=== PATIENT | male | born 1980 | race Asian ===

== ENCOUNTER 2021-03-26 18:51 | Inpatient (IN) | payer BC ==
[~2021-03-26] VITALS: Ht 177.8 cm; Wt 108.4 kg
[2021-03-26] MEDS ORDERED: MORPHINE SULFATE 4 MG/ML CPJ (NOT FOR IM USE) IV STA (21:16)
[2021-03-26] MEDS ORDERED: ONDANSETRON HCL 4MG/2ML INJ IV STA (21:16)
[2021-03-26] MEDS ORDERED: SODIUM CHLORIDE 0.9% 1,000 ML IV ONE ×2 (21:30)
[2021-03-27 00:11] LABS: HEMATOCRIT. 45.5 % (42.0-52.0); HEMOGLOBIN. 14.9 g/dL (14.0-18.0); MEAN CORPUSCULAR HEMOGLOBIN 23.7 pg (28.0-32.0); MEAN CORPUSCULAR VOLUME 72.4 fL (80.0-94.0); MEAN PLATELET VOLUME 8.4 fl (7.4-10.4); PLATELET 282 x1000/uL (130-400); RED BLOOD CELL COUNT 6.28 mill/uL (4.7-6.1)
[2021-03-27 00:22] LABS: CHLORIDE 112 mEq/L (98-107)
[2021-03-27 00:26] LABS: ETHANOL BLOOD < 10 mg/dL
[2021-03-27 00:31] LABS: INR 1.1; PROTHROMBIN TIME 11.4 sec (9.6-11.0)
[2021-03-27] MEDS ORDERED: DEXT 5%/0.9% NACL 1,000 ML IV ONE (00:45)
[2021-03-27] MEDS ORDERED: CALCIUM GLUCONATE 100MG/ML 10ML VIAL IV ONE (00:45)
[2021-03-27 02:22] LABS: CLARITY URINE CLOUDY (CLEAR); COLOR URINE DARK YELLOW (YELLOW); KETONES URINE TRACE (NEGATIVE); LEUKOCYTE ESTERASE URINE TRACE (NEGATIVE); NITRITE URINE NEGATIVE (NEGATIVE); OCCULT BLOOD URINE NEGATIVE (NEGATIVE); PROTEIN URINE 1+ (NEGATIVE); SPECIFIC GRAVITY URINE 1.021 (1.005-1.030)
[2021-03-27 02:31] LABS: METHADONE URINE SCREEN NEGATIVE (NEGATIVE); OPIATES URINE SCREEN PRESUMTIVE POSITIVE (NEGATIVE)
[2021-03-27 02:32] LABS: *AMPHETAMINES SCREEN URINE NEGATIVE (NEGATIVE); *BARBITURATES SCREEN URINE NEGATIVE (NEGATIVE); *BENZODIAZEPINES SCREEN URINE NEGATIVE (NEGATIVE); *COCAINE SCREEN URINE NEGATIVE (NEGATIVE); CANNABINOID URINE SCREEN NEGATIVE (NEGATIVE); PHENCYCLIDINE URINE SCREEN NEGATIVE (NEGATIVE)
[2021-03-27 02:45] VITALS: BP 91/58
[2021-03-27 04:00] VITALS: BP 107/48
[2021-03-27] MEDS ORDERED: ONDANSETRON HCL 4MG/2ML INJ IV PRN (04:15)
[2021-03-27] MEDS ORDERED: MORPHINE SULFATE 2 MG/ML CPJ (NOT FOR IM USE) IV PRN (04:15)
[2021-03-27] MEDS ORDERED: SODIUM CHLORIDE 0.9% 1,000 ML IV SCH (04:30)
[2021-03-27 04:35] LABS: PLATELET ESTIMATE NORMAL
[2021-03-27] MEDS ORDERED: LOSA1TAB37 MT (04:51)
[2021-03-27] MEDS ORDERED: DILT120T13 MT (04:51)
[2021-03-27] MEDS ORDERED: TEST60GE2 INJ (05:03)
[2021-03-27] MEDS ORDERED: ACETAMINOPHEN 650MG/20.3ML UDC PO PRN (05:45)
[2021-03-27 07:49] VITALS: BP 97/35
[2021-03-27 08:43] LABS: HEMATOCRIT. 42.8 % (42.0-52.0); HEMOGLOBIN. 14.2 g/dL (14.0-18.0); MEAN CORPUSCULAR HEMOGLOBIN 24.6 pg (28.0-32.0); MEAN CORPUSCULAR VOLUME 74.1 fL (80.0-94.0); MEAN PLATELET VOLUME 8.7 fl (7.4-10.4); PLATELET 232 x1000/uL (130-400); RED BLOOD CELL COUNT 5.78 mill/uL (4.7-6.1); RED CELL DISTRIBUTION WIDTH 17.1 % (11.6-14.6)
[2021-03-27] MEDS ORDERED: PNEUMOCOCCAL 23-VAL P-SAC VAC 0.5 ML IM ONE (08:45)
[2021-03-27 11:38] VITALS: BP 104/43
[2021-03-27 13:10] VITALS: BP 137/65
[2021-03-27 14:00] VITALS: BP 137/65
[2021-03-27 19:10] LABS: PLATELET ESTIMATE NORMAL
== END 2021-03-27 15:30 | disposition home or self-care (01) | DRG 871 ==
LOC: ER 20:08 → 6WST 03-27 01:42 → ENRESERV 03-27 02:08
PROVIDERS: ADMIT Internal Medicine; ATTEND Internal Medicine
DX: A41.9 Sepsis, unspecified organism (principal); N17.0 Acute kidney failure with tubular necrosis; E44.0 Moderate protein-calorie malnutrition; E66.9 Obesity, unspecified; E87.8 Other disorders of electrolyte and fluid balance, not elsewhere classified; I10 Essential (primary) hypertension; K52.9 Noninfective gastroenteritis and colitis, unspecified; K76.0 Fatty (change of) liver, not elsewhere classified; Z82.49 Family history of ischemic heart disease and other diseases of the circulatory system; Z68.34 Body mass index [BMI] 34.0-34.9, adult; Z71.3 Dietary counseling and surveillance
CPT/HCPCS: 36415; 76700; 80053; 80305; 80320; 81003; 83605; 85025; 86850; 86900; 99285; J0610; J2270; J2405; J7030; J7042; G0480